=== PATIENT | female | born 1990 | race African-American/Black ===

== ENCOUNTER → 2016-06-02 09:55 | Outpatient (CLI) | payer MEDICAID ==
[~2016-06-02 09:55] MED LIST: IBUPROFEN600 MG PO; PERCOCET 5-3251 TAB PO; PRENATAL COMPLE1 TAB PO
[2016-06-02 10:55] LABS: APPEARANCE CLEAR (CLEAR); BILIRUBIN NEGATIVE (NEGATIVE); COLOR YELLOW (YELLOW); GLUCOSE NEGATIVE (NEGATIVE); KETONE NEGATIVE (NEGATIVE); LEUKOCYTE ESTERASE NEGATIVE (NEGATIVE); NITRITE NEGATIVE (NEGATIVE); PROTEIN NEGATIVE (NEGATIVE); SPECIFIC GRAVITY 1.005 (1.005-1.020); UROBILINOGEN NORMAL (NORMAL)
[2016-06-02 11:55] LABS: BASOPHILS 0.1 % (0.0-2.0); EOSINOPHILS 0.6 % (0-7); HEMATOCRIT 36.4 % (36.0-48.0); HEMOGLOBIN 13.1 g/dL (12-16); IMMATURE GRANULOCYTES 0.5 % (0-5); LYMPHOCYTES 6.5 % (15-50); MCH 31.6 pg (26.0-34.0); MCV 87.9 fL (80.0-100.0); MEAN PLATELET VOLUME 11.3 fL (7.4-10.4); MONOCYTES 6.4 % (2-11); NEUTROPHILS 85.9 % (40-80); PLATELET COUNT 190 10x3/uL (130-400); RBC 4.14 10x6/uL (4.00-5.40); RDW 13.9 % (11.5-14.5); WBC 12.4 10x3/uL (4.8-10.8)
[2016-06-02 12:02] LABS: CALC OSMOLALITY 266 mosm/kg (275-300); CARBON DIOXIDE 24.6 mmol/L (21.0-32.0); CHLORIDE - SERUM 102 mmol/L (98-107); CREATININE - SERUM 0.5 mg/dL (0.6-1.3); GLUCOSE 79 mg/dL (74-106); POTASSIUM - SERUM 4.1 mmol/L (3.5-5.1); SODIUM 135 mmol/L (136-145); UREA NITROGEN 8 mg/dL (7-18); eGFR NON AFRICAN AMERICAN > 90 mL/min (90-120)
[2016-07-16 19:09] VITALS: BMI 39.7
== END | disposition home or self-care (01) ==
LOC: D.LDO 09:55
PROVIDERS: Specialist
DX: Z34.03 Encounter for supervision of normal first pregnancy, third trimester (principal); Z3A.30 30 weeks gestation of pregnancy; R11.2 Nausea with vomiting, unspecified

== ENCOUNTER → 2016-06-16 10:27 | Outpatient (CLI) | payer MEDICAID ==
[2016-06-16 11:24] LABS: APPEARANCE HAZY (CLEAR); BACTERIA FEW /hpf (NONE SEEN); BILIRUBIN NEGATIVE (NEGATIVE); COLOR YELLOW (YELLOW); EPITHELIAL CELLS 0-5 /hpf (0-5); GLUCOSE NEGATIVE (NEGATIVE); KETONE NEGATIVE (NEGATIVE); LEUKOCYTE ESTERASE TRACE (NEGATIVE); MUCUS <1+ /lpf (NONE SEEN); NITRITE NEGATIVE (NEGATIVE); PROTEIN NEGATIVE (NEGATIVE); RED CELLS - URINE 0-5 /hpf (0-5); SPECIFIC GRAVITY 1.005 (1.005-1.020); UROBILINOGEN NORMAL (NORMAL); WHITE CELLS - URINE OCC /hpf (0-5)
[2016-07-16 19:09] VITALS: BMI 39.7
== END | disposition home or self-care (01) ==
LOC: D.LDO 10:27
PROVIDERS: Obstetrics & Gynecology
DX: O26.899 Other specified pregnancy related conditions, unspecified trimester (principal)

== ENCOUNTER 2016-07-16 17:59 | Inpatient (IN) | payer MEDICAID ==
[~2016-07-16] VITALS: Ht 152.4 cm; Wt 92.1 kg
[~2016-07-16 17:59] MED LIST changes: -IBUPROFEN600 MG PO; -PERCOCET 5-3251 TAB PO
[2016-07-16] MEDS ORDERED: PRENATAL COMPLE1 TAB PO (19:06)
[2016-07-16 19:09] VITALS: BP 130/75; Ht 152.4 cm; Wt 92.1 kg
[2016-07-16 20:42] LABS: HEMATOCRIT 33.2 % (36.0-48.0); HEMOGLOBIN 12.2 g/dL (12-16); MCH 31.3 pg (26.0-34.0); MCHC 36.7 g/dL (31.0-37.0); MCV 85.1 fL (80.0-100.0); RBC 3.9 10x6/uL (4.00-5.40); RDW 13.5 % (11.5-14.5); WBC 10.7 10x3/uL (4.8-10.8)
[2016-07-17 04:45] VITALS: BP 119/74
--- NOTE | 2016-07-17 04:45 | NUR ---
PT TO ROOM FOR 1273 FOR CONTINUED PP CARE, FOLLOWING VISITING IN LEVEL 2 NBN. VSS. FUNDUS REMAINS FIRM, U1 WITH MODERATE AMT RUBRA LOCHIA, NOT CLOTS. ORIENTED TO ROOM. BED PLACED IN LOW POSITION WITH UPPER SIDE RAILS RAISED X2. CL AND PHONE WITHIN REACH. SANDWICH TRAY, PUDDING, JELLO, AND SODA GIVEN PER REQUEST. DENIES ADDITIONAL NEEDS AT THIS TIME.
--- NOTE | 2016-07-17 06:15 | NUR ---
AMBULATES TO DESK, ASKS RN IF SHE CAN GO INTO NBN TO SEE . RN TAKES PT TO NBN AND SHOWS HER THE BUTTON TO PUSH TO LET NBN STAFF KNOW SHE AT THE DOOR. DR. JOSHI ASSESSING INFANT AND DISCUSSING PLAN OF CARE AND POSSILBE TRANSFER TO [facility] OF WITH PT. AT THIS TIME.
--- NOTE | 2016-07-17 06:36 | NUR ---
PT TO REAL REPORTS THAT INFANT WILL BE TRANSFERRED TO [facility]. REQUESTING TO BE D/C'D IF POSSIBLE SO THAT SHE CAN GO WITH INFANT. Luis Angel FISHMAN RN SPOKE WITH DR. ARTIS WHILE GIVING REPORT ON ANOTHER PT WITH ORDERS REC'D THAT PT MAY DISCHARGE TO GO WITH INFANT.
--- NOTE | 2016-07-17 06:45 | NUR ---
PT. UP WALKING IN HALLWAY. EXPRESSES DESIRE TO DISCHARGE DUE TO INFANT BEING TRANSFERRED TO [facility] IN [place]. DR. ARTIS CALLED AND INFORMED OF PT. REQUEST TO DISCHARGE. ORDER RECEIVED.
--- NOTE | 2016-07-17 07:16 | NUR ---
PT UPDATED ON PLAN OF CARE. BEDSIDE REPORT GIVEN TO Chano SNIDER RN. PT INSTRUCTED ON USE OF DERMAPLAST, EPIFOAM, AND TUXS PADS. VERBALIZED UNDERSTANDING. INSTRUCTED ON SITZ BATH, VERBALIZED UNDERSTANDING, BUT REQUEST DEMONSTRATION DURING NEXT VOID. STATES THAT SHE DOES NOT NEED TO VOID AT THIS TIME THAT SHE LAST VOIDED AT 0600 WITHOUT DIFFICULTY. PT WILL NOTIFY RN WHEN SHE NEEDS TO VOID AGAIN.
--- NOTE | 2016-07-17 07:50 | NUR ---
PT UP AND AMBULATORY IN ROOM, TO BR, VOIDS PER SELF, PERICARE DONE PER SELF USING BETADINE/WARM WATER, EPIFOAM, AND TUCKS. PERIPADS/PANTIES PROVIDED. EDUCATION PROVIDED USING PERICARE ITEMS. PT DENIES OTHER NEEDS AT THIS TIME.
[2016-07-17] MEDS ORDERED: IBUPROFEN600 MG PO (08:42)
[2016-07-17] MEDS ORDERED: PERCOCET 5-3251 TAB PO (08:43)
--- NOTE | 2016-07-17 08:50 | NUR ---
CURRENTLY IN NURSERY. INFANT IS BEING TRANSFERRED TO [facility] THIS AM. WILL COMPLETE SHIFT ASSESSMENT AND PREPARE FOR DC WHEN SHE RETURNS TO ROOM.
[2016-07-17 09:25] VITALS: BP 129/70
--- NOTE | 2016-07-17 09:25 | NUR ---
SHIFT ASSESSMENT COMPLETED. VERBAL AND WRITTEN INFORMATION GIVEN REGARDING TDAP. STARTED DC TEACHING TO INCLUDE ROUTINE PP CARE, PP DEPRESSION, S&S DEPRESSION, SITZ BATH, MEDICATION ADMINISTRATION AND USE FOR MOTRIN AND PERCOCET, PERINEAL/LACERATION CARE. VERBAL AND WRITTEN INFORMATION GIVEN ON ABOVE ALONG WITH COMMUNITY RESOURCE INFORMATION AND CAR SAFETY INFORMATION. DESIRES TDAP AND ASKED FOR PAIN MEDICATION FOR PERINEAL PAIN. DISCUSSED MEDICATION OPTIONS. DESIRES PERCOCET 10MG.
--- NOTE | 2016-07-17 09:43 | NUR ---
PERCOCET 10 MG GIVEN PO FOR RELIEF OF PERINEAL PAIN. ALSO HAS DERMOPLAST, TUCKS AND EPIFOAM TO USE AND SHE SAYS SHE IS AWARE HOW TO USE THE MEDICATION. SHE IS PACKED AND READY FOR DC. WAITING ON NURSERY TO COMPLETE PAPERWORK.
--- NOTE | 2016-07-17 09:44 | NUR ---
PT DESIRES TDAP. TDAP GIVEN IN LEFT DELTOID WITHOUT DIFFICULTY.
--- NOTE | 2016-07-17 11:30 | NUR ---
PATIENT WHEELED OUT TO WAITING CAR AFTER REVIEWING HER DISCHARGE PAPERWORK AGAIN. SHE HAS TUCKS AND EPIFOAM, PERIPADS AND DERMOBLAST. SHE DENIES UNCONTROLLED PAIN AND IS ANXIOUS TO GO BE WITH HER BABY AT [facility]. BRANDON ACCOMPANIES HER AND SIGNS NURSERY PAPERWORK WITH HER PRIOR TO LEAVING. SHE STATES THAT HER BLEEDING IS LIKE THAT OF A PERIOD AND SHE HAS SOME PERIPADS. SHE HAS PRESCRIPTIONS FOR PAIN MEDICATIONS AND MATERIAL TO READ. SHE UNDERSTANDS NOT TO SLEEP WITH HER WHEN SHE GETS HOME AND IS UP AD JENS AROUND THE ROOM.
== END 2016-07-17 11:30 | disposition home or self-care (01) | DRG 774 ==
LOC: D.LDO 17:59 → D.LD 18:41
PROVIDERS: ADMIT Specialist
PROC: 10D07Z6 Extraction of Products of Conception, Vacuum, Via Natural or Artificial Opening (ICD-10-PCS; principal; 2016-07-17)
PROC: 0W8NXZZ Division of Female Perineum, External Approach (ICD-10-PCS; 2016-07-17)
DX: O60.14X0 Preterm labor third trimester with preterm delivery third trimester, not applicable or unspecified (principal); O98.32 Other infections with a predominantly sexual mode of transmission complicating childbirth; Z3A.36 36 weeks gestation of pregnancy; Z37.0 Single live birth; O99.214 Obesity complicating childbirth; A59.9 Trichomoniasis, unspecified; O99.824 Streptococcus B carrier state complicating childbirth

== ENCOUNTER 2017-02-19 10:52 | Emergency (ER) | payer MEDICAID ==
[2016-07-16 19:09] VITALS: BMI 39.7
[~2017-02-19 10:52] MED LIST changes: +IBUPROFEN600 MG PO; +PERCOCET 5-3251 TAB PO
== END 2017-02-19 12:48 | disposition home or self-care (01) ==
LOC: D.ER 10:52
DX: J02.9 Acute pharyngitis, unspecified (principal)

== ENCOUNTER 2017-04-01 09:09 | Day surgery (SDC) | payer MEDICAID ==
[~2017-04-01] VITALS: Ht 152.4 cm; Wt 80.7 kg
--- NOTE | ~2017-04-01 | OP ---
PATIENT NAME: ANDREAS DENNIS MEDICAL RECORD: [id number] :89 LOCATION:[facility] ADMISSION DATE: SURGEON: ELIZABETH KAUR DO DATE OF OPERATION: 04/01/2017 PROCEDURE PERFORMED: Left de Quervain release or first dorsal compartment release. PREOPERATIVE DIAGNOSIS: Left wrist de Quervain's tenosynovitis or radial styloid tenosynovitis. POSTOPERATIVE DIAGNOSIS: Left wrist de Quervain's tenosynovitis or radial styloid tenosynovitis. INDICATIONS: Ms. Dennis is a 27-year-old female who presented to my office some months ago with this pain at her left wrist that was very painful when she go to lift anything up with radial deviation. She had an injection and this did not help and she was seen back in the office and wanted it released. She was informed of the risks and benefits of the procedure in the office including irritation of the radial sensory nerve in the hand. SURGEON: Elizabeth Kaur DO TOURNIQUET TIME: 11 minutes. COMPLICATIONS: None. BLOOD LOSS: Minimal. DESCRIPTION OF PROCEDURE: The patient was taken to the operative suite, laid in the supine position, given a gram of Ancef preoperatively, did not have a reaction to a test dose, so she was given Ancef. Once this was done, the left upper extremity was prepped and draped in sterile fashion and the patient was given general anesthetic and LMA was placed. Once the patient was prepped and draped and timeout had been performed, the procedure commenced with inflation of the tourniquet after the left upper extremity was exsanguinated with an Esmarch. Once the tourniquet was up, the incision began over the radial styloid just dorsal to it. Careful dissection was made down to the first dorsal compartment extensor tendon sheath. This was encountered and seen to be quite thick. It was released on the dorsal side of the tendons, the APL and EPB. Once it was opened up, I could see there was an extra slip in the septum between the EPB and the APL was taken out or that extra slip was opened up if you will. Once this was done, the synovectomy was done on the tendon that was inflamed and the tendon was pulled through the wound and the thumb was moved and the tendons seemed to glide very easily and did not sublux volarly. The tourniquet was then let down at 11 minutes. Pressure was held on the wound. There were no vessels to be coagulated and the wound itself was closed with 5-0 Monocryl in inverted interrupted fashion. Steri-Strips were placed over that. A 10 mL of 0.5% Marcaine were put in the wound and around it to anesthetize it and after the Steri-Strips were put on, Adaptic, 4 x 4s, Kerlix, and Coban were placed over the left wrist and on the wound. The patient was awakened and taken to recovery in stable condition. TRANSINT:[id number] Voice Confirmation ID: [id number] DOCUMENT ID: [id number] OPERATIVE REPORT [id number] ANDREAS DENNIS,ELIZABETH Arteaga DO at 1707 CC: [id number] DICTATION DATE: 04/01/17 1333 [employer] SPECIALIST: 04/01/17 1447 [facility] 04/01/17 [id number] [place] [address]
[2017-04-01 10:13] LABS: HEMATOCRIT 37.2 % (36.0-48.0); HEMOGLOBIN 13.6 g/dL (12-16); MCH 30.6 pg (26.0-34.0); MCHC 36.6 g/dL (31.0-37.0); MCV 83.8 fL (80.0-100.0); MEAN PLATELET VOLUME 11.7 fL (7.4-10.4); RBC 4.44 10x6/uL (4.00-5.40); RDW 14.4 % (11.5-14.5); WBC 6.4 10x3/uL (4.8-10.8)
[2017-04-01] MEDS ORDERED: birth control PO (10:29)
[2017-04-01 10:30] VITALS: BP 112/70; Ht 152.4 cm; Wt 80.7 kg
[2017-04-01 10:43] LABS: HCG URINE NEGATIVE (NEGATIVE)
[2017-04-01] MEDS ORDERED: HYDROCODON-ACE1 EAC7 PO (13:27)
[2017-04-01] MEDS ORDERED: DURICEF500 MG PO (13:28)
== END 2017-04-01 14:50 | disposition home or self-care (01) ==
LOC: D.OPS 09:09 → D.PAN 12:00 → D.OPS 12:00
PROVIDERS: Anesthesiology; Orthopaedic Surgery
DX: M65.4 Radial styloid tenosynovitis [de Quervain] (principal); Z01.812 Encounter for preprocedural laboratory examination